=== PATIENT | female | born 1965 | race Caucasian/White ===

== ENCOUNTER → 2018-01-09 | Outpatient (CLI) | payer OTHER | END | disposition home or self-care (01) | LOC: RAD 14:10 | PROVIDERS: ATTEND Physician Assistant | DX: S52.572A Other intraarticular fracture of lower end of left radius, initial encounter for closed fracture (principal); X58.XXXA Exposure to other specified factors, initial encounter; Y93.89 Activity, other specified; Y92.89 Other specified places as the place of occurrence of the external cause; Y99.8 Other external cause status ==